=== PATIENT | female | born 1990 | race African-American/Black ===

== ENCOUNTER 2018-07-07 10:03 | Emergency (ER) | payer MEDICAID ==
[~2018-07-07] VITALS: Ht 170.2 cm; Wt 111.6 kg
[2018-07-07 10:33] VITALS: BP 137/95
== END 2018-07-07 12:43 | disposition home or self-care (01) ==
LOC: ER 10:03
DX: J02.9 Acute pharyngitis, unspecified (principal); J04.0 Acute laryngitis

== ENCOUNTER 2018-09-04 01:33 | Emergency (ER) | payer MEDICAID ==
[~2018-09-04] VITALS: Ht 170.2 cm; Wt 111.6 kg
[2018-09-04 02:37] VITALS: BP 147/91
== END 2018-09-04 06:34 | disposition left against medical advice (07) ==
LOC: ER 01:33
DX: M54.5 Low back pain (principal); Z53.21 Procedure and treatment not carried out due to patient leaving prior to being seen by health care provider
CPT/HCPCS: 12001; 72131

== ENCOUNTER 2018-09-04 12:51 | Emergency (ER) | payer MEDICAID ==
[~2018-09-04] VITALS: Ht 170.2 cm; Wt 111.6 kg
[2018-09-04 13:12] VITALS: BP 140/92
[2018-09-04] MEDS ORDERED: KETOROLAC TROMETH 60MG/2ML VIAL IM ONE (15:15)
[2018-09-04] MEDS ORDERED: METHOCARBAMOL 500 MG TAB PO ONE (15:30)
[2018-09-04 15:46] LABS: Urine Bacteria NONE SEEN /hpf (None Seen); Urine Blood Negative /uL (Negative); Urine Mucus FEW (None Seen); Urine Specific Gravity 1.026 (1.001-1.035); Urine WBC 5 /hpf (0 - 5)
== END 2018-09-04 16:24 | disposition home or self-care (01) ==
LOC: ER 13:01
DX: M54.5 Low back pain (principal); I10 Essential (primary) hypertension; Z90.49 Acquired absence of other specified parts of digestive tract; E66.01 Morbid (severe) obesity due to excess calories; Z68.38 Body mass index [BMI] 38.0-38.9, adult; X50.1XXA Overexertion from prolonged static or awkward postures, initial encounter; Y93.E9 Activity, other interior property and clothing maintenance; Y92.89 Other specified places as the place of occurrence of the external cause; Y99.8 Other external cause status
CPT/HCPCS: 81001; 96372; 99283; J1885